=== PATIENT | male | born 1980 | race Caucasian/White ===

== ENCOUNTER 2019-04-21 14:49 | Emergency (ER) | payer BC ==
[~2019-04-21] VITALS: Ht 180.3 cm; Wt 75.5 kg
[2019-04-21 15:10] VITALS: Ht 180.3 cm; Wt 75.5 kg
[2019-04-21] MEDS ORDERED: MELATONIN10 M1 PO (15:15)
[2019-04-21] MEDS ORDERED: MULTI-DAY VITAM1 TAB PO (15:15)
[2019-04-21 15:41] LABS: BASOPHILS 0.2 % (0-2); EOSINOPHILS 2.4 % (0-7); HEMATOCRIT 40.9 % (42.0-54.0); HEMOGLOBIN 14.6 g/dL (13.5-17.5); LYMPHOCYTES 29.1 % (15-50); MCH 29.6 pg (26.0-34.0); MCHC 35.7 g/dL (31.0-37.0); MCV 82.8 fL (80.0-100.0); MEAN PLATELET VOLUME 11.2 fL (7.4-10.4); MONOCYTES 7.3 % (2-11); PLATELET COUNT 154 10x3/uL (130-400); RBC 4.94 10x6/uL (4.20-6.10); RDW 11.9 % (11.5-14.5); WBC 5.5 10x3/uL (4.8-10.8)
[2019-04-21 15:50] LABS: APTT 29.5 SECONDS (22.8-39.4); INR 0.95 (0.85-1.17); PROTIME 12.2 SECONDS (11.6-15.0)
[2019-04-21 16:00] LABS: ALBUMIN 4.1 g/dL (3.4-5.0); ALKALINE PHOSPHATASE 57 U/L (46-116); ALT (SGPT) 21 U/L (10-68); BILIRUBIN - TOTAL 0.45 mg/dL (0.2-1.3); CALC OSMOLALITY 280 mosm/kg (275-300); CARBON DIOXIDE 27.2 mmol/L (21.0-32.0); CHLORIDE - SERUM 101 mmol/L (98-107); CREATININE - SERUM 1.1 mg/dL (0.6-1.3); GLUCOSE 104 mg/dL (74-106); POTASSIUM - SERUM 3.8 mmol/L (3.5-5.1); PROTEIN - SERUM 7.2 g/dL (6.4-8.2); SODIUM 139 mmol/L (136-145); UREA NITROGEN 20 mg/dL (7-18); eGFR NON AFRICAN AMERICAN 80 mL/min (90-120)
[2019-04-21 16:11] LABS: CKMB 0.1 U/L (0.0-3.6); CREATINE KINASE 90 UL (21-232); MAGNESIUM - SERUM 1.9 mg/dL (1.8-2.4); TROPONIN-I < 0.017 ng/mL (0.000-0.060)
[2019-04-21] MEDS ORDERED: ACETAMINOPHEN500 M1 PO (18:59)
[2019-04-21] MEDS ORDERED: CYCLOBENZAPRINE10 MG PO (18:59)
[2019-04-21] MEDS ORDERED: IBUPROFEN800 MG PO (18:59)
[2019-04-21 20:36] VITALS: BP 109/65
== END 2019-04-21 20:36 | disposition home or self-care (01) ==
LOC: D.ER 14:49
PROVIDERS: Family Medicine
DX: R07.9 Chest pain, unspecified (principal)

== ENCOUNTER → 2020-12-12 10:00 | Outpatient (CLI) | payer BC ==
[2019-04-21 15:10] VITALS: BMI 23.2
[~2020-12-12 10:00] MED LIST: ACETAMINOPHEN500 M1 PO; CYCLOBENZAPRINE10 MG PO; IBUPROFEN800 MG PO; MELATONIN10 M1 PO; MULTI-DAY VITAM1 TAB PO
== END | disposition home or self-care (01) ==
LOC: D.CT 10:00
PROVIDERS: ATTEND Family Medicine
DX: R10.9 Unspecified abdominal pain (principal)

== ENCOUNTER → 2020-12-13 08:04 | Outpatient (CLI) | payer BC ==
[2019-04-21 15:10] VITALS: BMI 23.2
== END | disposition home or self-care (01) ==
LOC: D.NM 08:04
PROVIDERS: ATTEND Family Medicine
DX: R10.11 Right upper quadrant pain (principal)